=== PATIENT | female | born 1945 | race Caucasian/White ===

== ENCOUNTER 2016-10-25 15:28 | Inpatient (IN) ==
[2016-10-25] MEDS ORDERED: NS 1,000 ML IV SCH (17:07)
[2016-10-25] MEDS: DILAUDID IV PRN ×2 (17:20→22:01)
[2016-10-25] MEDS ORDERED: VENTOLIN HFA INH PRN (19:46)
[2016-10-25] MEDS: ELIQUIS PO SCH (21:59)
[2016-10-25] MEDS: PRAVACHOL PO SCH (21:59)
[2016-10-25] MEDS: NS 1,000 ML IV SCH (22:00)
--- NOTE | 2016-10-25 22:04 | HISTORY AND PHYSICAL ---
CHIEF COMPLAINT: Intractable left flank pain, localized. HISTORY OF PRESENT ILLNESS: She is a 71-year-old pleasant white female who was seen in the emergency room last night for left flank pain. ER workup with CT was negative. Sent home after pain shot. She was not able to sleep, came in with her daughter with intractable back pain and unable to sleep. She is dehydrated. Potassium is low. No skin rashes noted. X-ray of thoracic spine revealed no compression deformities noted. Basically admitted to the hospital for the pain control, IV fluids, and further evaluation. PAST MEDICAL HISTORY: Atrial fibrillation status post cardioversion with 100 joules failed, right lacunar infarct internal capsule on the left side, slight weakness, COPD, diastolic heart failure, metabolic syndrome, acid reflux disease, hypertension, nicotine dependency, B12 deficiency, anemia, left superficial femoral artery stenosis, left carotid stenosis. PAST SURGICAL HISTORY: Gastric bypass surgery, appendectomy, cholecystectomy, tubal ligation, stripping of the veins of both legs, varicose veins, right carotid endarterectomy. MEDICATIONS: Aspirin 1 tablet daily, amiodarone 200 daily, Breo 100/25 1 puff daily, digitalis 125 mcg daily, diltiazem 120 mg daily, Eliquis 5 mg p.o. b.i.d., Lasix 40 mg daily, gabapentin 600 t.i.d., potassium 20 mEq daily, Hyzaar 100/12.5 daily, Prilosec 20 daily, pravastatin 40 daily, ProAir as needed. ALLERGIES: Macrobid. SOCIAL HISTORY: with 3 children. Lives in [place]. Smoking half a pack a day for last 40 years. No alcohol. FAMILY HISTORY: Father of colon cancer at 70. Mom of old age. HEALTH MAINTENANCE: Influenza vaccine 2015, pneumococcal vaccine 2015, mammography 01/2016, DEXA scan 11/2014, colonoscopy [address] Umana. REVIEW OF SYSTEMS: HEENT: No headache. No vision problem. No earache. No sore throat. Neck: No goiter. No lymphadenopathy. No neck pain. Cardiopulmonary: No chest pain, shortness of breath, PND, orthopnea. No palpitations. GI: No nausea, vomiting, abdominal pain. : History of left flank pain. No skin rashes. Localized. No radiation. No hematuria or dysuria. Extremities: No swelling of feet. No joint pain. Neurologic: No obvious focal symptoms or weakness. PHYSICAL EXAMINATION: VITAL SIGNS: 5 feet 2 inches, 142 pounds. Afebrile, blood pressure is stable, room air 90% on oxygen. HEENT: Exam within normal limits. NECK: Supple. No lymphadenopathy. No goiter. CHEST: Bilateral air entry. HEART: Sounds are irregular. BREASTS: Deferred. ABDOMEN: Belly is soft, nontender. Good bowel sounds. Localized pain and no signs of peritonitis. No skin rashes noted. EXTREMITIES: No peripheral edema, cyanosis, clubbing. No signs of gangrene. NEUROLOGIC: No obvious focal deficits. INVESTIGATIONS: Renal CT on 10/23/2016: No renal stones or hydronephrosis, cholecystectomy, diverticulosis, prominent atherostenosis, gastric bypass. CBC: White cell count 5.4, hematocrit 41, platelet count 281,000. PT/INR is normal. D-dimer is normal. SMA 7: Sodium 140, potassium 3.2, BUN 23, creatinine 1.3, glucose 135. LFTs were normal. ProBNP 9500. ASSESSMENT AND PLAN: 1. A 71-year-old white female admitted to the hospital for observation with intractable left flank pain, etiology to be determined. X-ray of thoracic spine is negative. If no better, will consider bone scan versus MRI of thoracic spine. 2. Dehydration. Gentle hydration with 50 mL of normal saline. 3. Hypokalemia. Replace the potassium. 4. Ongoing tobacco abuse. Quit smoking. 5. Chronic obstructive pulmonary disease, stable. 6. Cerebrovascular accident on the right side with left-sided weakness, stable. 7. Paroxysmal atrial fibrillation. Continue on Cordarone and Eliquis for stroke prevention. 8. Reconcile home medications. We will follow up on the clinical course. cc: Johnny Moe MD
[2016-10-26] MEDS: POTASSIUM CHLORIDE 20 MEQ/SWI 20 MEQ/100 ML IVPB IV SCH ×2 (00:18→02:08)
[2016-10-26] MEDS: DILAUDID IV PRN ×4 (04:39→19:38)
[2016-10-26 06:35] LABS: MANUAL DIFF NEEDED? NO
[2016-10-26 06:41] LABS: BASO% 0.7 % (0.0-0.8); EOS# 0.06 X1000 (0.0-0.7); EOS% 1.4 % (0.0-10.0); HEMATOCRIT 34.9 % (37.0-47.0); LYMPH# 0.98 X1000 (1.2-3.4); LYMPH% 22.6 % (20.5-51.1); MCH 30.6 PG (27-31); MCHC 31.5 g/dL (33-37); MCV 96.9 FL (81-99); MONO% 6.9 % (1.7-9.3); MPV 11.3 FL (7.4-10.4); NEUT% 68.4 % (42.2-75.2); PLT 181 X1000 (130-400)
[2016-10-26 07:19] LABS: CALCIUM 7.6 mg/dL (8.8-10.2); POTASSIUM 3.7 mmol/L (3.5-5.1)
[2016-10-26] MEDS: PRILOSEC PO SCH (07:21)
[2016-10-26 07:55] LABS: SED RATE 18 mm/hr (0-20)
[2016-10-26] MEDS: ZOFRAN IV PRN (08:13)
[2016-10-26] MEDS: BREO ELLIPTA 100/25 MCG INH INH SCH (08:15)
[2016-10-26] MEDS ORDERED: AMBIEN PO PRN (08:33)
[2016-10-26] MEDS ORDERED: ATIVAN IV ONE (08:45)
--- NOTE | 2016-10-26 09:02 | PROGRESS NOTE ---
DATE: 10/26/2016 SUBJECTIVE: Intractable mid back pain, mostly towards the left side. Nausea, not eating well. The patient denies of any radiation. No focal symptoms or weakness. REVIEW OF SYSTEMS: None reported other than pain. PHYSICAL EXAMINATION: Vital Signs: On examination, afebrile. Blood pressure is 170/74, room air 96%. HEENT Examination: Within normal limits. Neck: Supple. Chest: Clear. Heart: Heart sounds are regular. Abdomen: Belly is soft, nontender. Good bowel sounds. No masses palpable. Integumentary: No rashes noted. Neurologic: No obvious neurological deficits. DIAGNOSTIC DATA: CBC: White cell count 4.3, hematocrit 34, platelets 181,000. Sedimentation rate was 18. SMA 7 is normal. Creatinine is 1.2. CRP 0.39. ASSESSMENT AND PLAN: 1. Intractable mid back pain towards the left side, etiology to be determined. Consider MRI of thoracic spine. 2. Impending dehydration. Intravenous fluids. 3. Insomnia. Ambien. 4. Continue present medical therapy. LEVEL OF DOCUMENTATION: 25 minutes. cc: Johnny Moe MD
--- NOTE | 2016-10-26 09:35 | Diag Imaging Result Doc PS360 ---
EXAM: MRI THORACIC SPINE W/WO CONTR HISTORY: Mid back pain TECHNIQUE: MRI of the thoracic spine with and without gadolinium; T1, T2, STIR and post gadolinium T1 fat suppressed sagittal, T1 pre and post axial and T2 axial. COMMENT: There is curvature of the thoracic spine with convexity to the left. There is no evidence of bone marrow edema. No intrathecal or intramedullary masses or signal abnormalities are present. There is no evidence of abnormal gadolinium enhancement. There is no evidence of spinal stenosis. IMPRESSION: Scoliosis. No evidence of acute disease otherwise. Electronically signed by Alexis Manriquez 10/26/2016 9:33 AM
[2016-10-26] MEDS: KLOR-CON PO SCH (09:36)
[2016-10-26] MEDS: NEURONTIN PO SCH ×3 (09:36→21:38)
[2016-10-26] MEDS: HYZAAR 100/12.5 MG TAB PO SCH (09:36)
[2016-10-26] MEDS: LASIX PO SCH (09:36)
[2016-10-26] MEDS: ASPIRIN EC PO SCH (09:36)
[2016-10-26] MEDS: ELIQUIS PO SCH ×2 (09:36→21:38)
[2016-10-26] MEDS: CARDIZEM CD PO SCH (09:38)
[2016-10-26] MEDS: CORDARONE PO SCH (09:39)
[2016-10-26] MEDS: LANOXIN PO SCH (09:39)
[2016-10-26] MEDS: NS 1,000 ML IV SCH (13:00)
[2016-10-26] MEDS: PRAVACHOL PO SCH (21:38)
[2016-10-27] MEDS: DILAUDID IV PRN ×5 (00:09→21:32)
[2016-10-27] MEDS: NS 1,000 ML IV SCH ×2 (06:57→13:13)
[2016-10-27] MEDS: PRILOSEC PO SCH (06:57)
[2016-10-27] MEDS: BREO ELLIPTA 100/25 MCG INH INH SCH (08:00)
[2016-10-27] MEDS: LANOXIN PO SCH (08:17)
[2016-10-27] MEDS: NEURONTIN PO SCH ×3 (08:17→17:11)
[2016-10-27] MEDS: CORDARONE PO SCH (08:17)
[2016-10-27] MEDS: KLOR-CON PO SCH (08:17)
[2016-10-27] MEDS: ASPIRIN EC PO SCH (08:17)
[2016-10-27] MEDS: ELIQUIS PO SCH ×2 (08:18→21:00)
[2016-10-27] MEDS: HYZAAR 100/12.5 MG TAB PO SCH (08:18)
[2016-10-27] MEDS: LASIX PO SCH (08:18)
[2016-10-27] MEDS: CARDIZEM CD PO SCH (08:18)
--- NOTE | 2016-10-27 09:03 | PROGRESS NOTE ---
DATE: 10/27/2016 SUBJECTIVE: Complains of left flank, interscapular pain. Pain is slowly easing up. REVIEW OF SYSTEMS: Otherwise none reported. PHYSICAL EXAMINATION: Vital Signs: Afebrile. Vitals are stable. HEENT: Examination within normal limits. Neck: Supple. Chest: Clear. Heart: Heart sounds are regular. Abdomen: Belly is soft and nontender. Good bowel sounds. INVESTIGATIONS: So far workup, CBC, SMA 7 are normal. An MRI of the thoracic spine is negative. ASSESSMENT AND PLAN: Left flank pain, etiology to be determined. All the workup was negative including CT renal stone search, MRI of the thoracic spine. Discussed the findings with the patient. Continue musculoskeletal pain, local treatment for pain control. We will discuss with the family about the disposition. She lives by herself. Hopefully, will be discharged home in the morning. Continue present medical therapy. Level of documentation 15 minutes. cc: Johnny Moe MD
[2016-10-27] MEDS: ZOFRAN IV PRN ×3 (12:11→21:32)
[2016-10-27] MEDS: PRAVACHOL PO SCH (21:00)
[2016-10-28] MEDS: DILAUDID IV PRN ×5 (01:37→23:33)
[2016-10-28] MEDS: ZOFRAN IV PRN ×4 (01:37→23:33)
[2016-10-28] MEDS: NS 1,000 ML IV SCH ×3 (01:43→20:04)
[2016-10-28] MEDS: PRILOSEC PO SCH (06:01)
[2016-10-28] MEDS: BREO ELLIPTA 100/25 MCG INH INH SCH (07:07)
--- NOTE | 2016-10-28 09:13 | EKG Report ---
Test Performed on : 10/28/2016 08:57:01 AM Test Reason : chest pain Blood Pressure : / mmHG Vent. Rate : 050 BPM Atrial Rate : 288 BPM P-R Int : 000 ms QRS Dur : 080 ms QT Int : 326 ms P-R-T Axes : 000 035 225 degrees QTc Int : 297 ms Atrial fibrillation. with slow ventricular response. Septal infarct (cited on or before 06-JUL-2016) ST \T\ T wave abnormality, consider lateral ischemia Abnormal ECG When compared with ECG of 06-JUL-2016 16:27, ST no longer depressed in Anterior leads Nonspecific T wave abnormality has replaced inverted T waves in Inferior leads T wave inversion less evident in Anterior leads QT has shortened Confirmed by Maicol LUA, Faisal Burnham ([id number]) on 10/30/2016 12:39:52 PM
[2016-10-28] MEDS: NEURONTIN PO SCH ×3 (09:18→16:04)
[2016-10-28] MEDS: CORDARONE PO SCH (09:18)
[2016-10-28] MEDS: LASIX PO SCH (09:18)
[2016-10-28] MEDS: ASPIRIN EC PO SCH (09:18)
[2016-10-28] MEDS: KLOR-CON PO SCH (09:18)
[2016-10-28] MEDS: HYZAAR 100/12.5 MG TAB PO SCH (09:18)
[2016-10-28] MEDS: ELIQUIS PO SCH ×2 (09:18→20:05)
[2016-10-28] MEDS: LANOXIN PO SCH (09:19)
[2016-10-28] MEDS: CARDIZEM CD PO SCH (09:20)
--- NOTE | 2016-10-28 09:28 | PROGRESS NOTE ---
DATE: 10/28/2016 SUBJECTIVE: Complains of left-sided chest pain, localized. No rashes noted. Not able to breathe. Nurses reported hall monitor and heart rate. She has dropped to 50s and 40s. Currently, asymptomatic. The pain is 5/10. Nonproductive cough. The rest of the review of systems are normal. OBJECTIVE: Vital Signs: On examination, heart rate is about 50. Afebrile. Blood pressure is 147/44. HEENT: Within normal limits. Neck: Supple. Chest: Bilateral air entry. Questionable pleurisy on the left side. Heart: Sounds are regular. Belly is soft, nontender. Good bowel sounds. No obvious neurological deficits. ASSESSMENT AND PLAN: 1. Left-sided chest wall pain and the back. Etiology to be determined. We will do a chest x-ray with left rib series. 2. Sinus bradycardia. We will do a stat EKG and digoxin levels, and hold if the heart rate is less than 60. 3. Plan of the care is hold the discharge. Continue IV fluids and symptomatic pain with hydromorphone and will follow up. LEVEL OF DOCUMENTATION: Twenty-five minutes. cc: Johnny Moe MD
--- NOTE | 2016-10-28 10:42 | Diag Imaging Result Doc PS360 ---
RIBS UNILAT W/PA CHEST LEFT - 10/28/2016 INDICATION: cp TECHNIQUE: Five views COMPARISON: 07/06/2016 FINDINGS: There is stable appearing, chronic blunting of the left lateral costophrenic angle. Heart size is borderline. Pulmonary vascularity is normal. No focal infiltrates, pneumothorax, or pleural effusion. No left-sided rib fracture. IMPRESSION: No acute disease or change from prior. Electronically signed by Shane Jon 10/28/2016 10:40 AM
[2016-10-28] MEDS: PRAVACHOL PO SCH (20:05)
[2016-10-29] MEDS: DILAUDID IV PRN ×2 (03:09→06:38)
[2016-10-29] MEDS: ZOFRAN IV PRN ×2 (03:10→06:37)
[2016-10-29 04:40] LABS: ALLEN TEST NO; BE 6.9 mmoll (-3.0-3.0); BLOOD TYPE ARTERIAL; DRAW SITE R BRACHIAL; O2(CT) 12.9 mL/dL (15.0-23.0); PCO2(98.6) 47 mmHg (35-45); PO2(98.6) 66 mmHg (60-100); SAMPLE BLOOD; SAO2 94.7 % (95.0-100.0); pH(98.6) 7.44 (7.35-7.45)
[2016-10-29 04:43] LABS: MODALITY ROOM AIR
[2016-10-29] MEDS: PRILOSEC PO SCH (06:37)
[2016-10-29] MEDS: NS 1,000 ML IV SCH (06:37)
[2016-10-29] MEDS: LANOXIN PO SCH (08:09)
[2016-10-29] MEDS: ASPIRIN EC PO SCH (08:09)
[2016-10-29] MEDS: HYZAAR 100/12.5 MG TAB PO SCH (08:09)
[2016-10-29] MEDS: CORDARONE PO SCH (08:09)
[2016-10-29] MEDS: ELIQUIS PO SCH ×2 (08:09→21:13)
[2016-10-29] MEDS: KLOR-CON PO SCH (08:09)
[2016-10-29] MEDS: NEURONTIN PO SCH ×3 (08:09→16:35)
[2016-10-29] MEDS: CARDIZEM CD PO SCH (08:09)
[2016-10-29] MEDS: LASIX PO SCH (08:09)
[2016-10-29] MEDS: BREO ELLIPTA 100/25 MCG INH INH SCH (11:23)
--- NOTE | 2016-10-29 13:47 | PROGRESS NOTE ---
DATE: 10/29/2016 SUBJECTIVE: Ms. Gutierrez still has some flank pain. Her abdomen is gig tender. She has dehydration. She says food hurts. She is anemic. Current chest x-ray and digitalis levels are normal. Arterial blood gases are unremarkable except for mild hypoxia. She is having some pain when she eats food; however, she is on Prilosec, which we will continue. -9 cc: MD Johnny Riggs MD
[2016-10-29] MEDS: PRAVACHOL PO SCH (21:13)
[2016-10-30] MEDS: PRILOSEC PO SCH (06:06)
[2016-10-30] MEDS: NS 1,000 ML IV SCH ×3 (06:06→22:49)
[2016-10-30] MEDS: BREO ELLIPTA 100/25 MCG INH INH SCH (08:04)
[2016-10-30] MEDS: LANOXIN PO SCH (08:29)
[2016-10-30] MEDS: CARDIZEM CD PO SCH (08:29)
[2016-10-30] MEDS: LASIX PO SCH (08:29)
[2016-10-30] MEDS: ELIQUIS PO SCH ×2 (08:29→20:43)
[2016-10-30] MEDS: CORDARONE PO SCH (08:29)
[2016-10-30] MEDS: HYZAAR 100/12.5 MG TAB PO SCH (08:29)
[2016-10-30] MEDS: KLOR-CON PO SCH (08:29)
[2016-10-30] MEDS: ASPIRIN EC PO SCH (08:29)
[2016-10-30] MEDS: NEURONTIN PO SCH ×3 (08:29→16:50)
--- NOTE | 2016-10-30 15:16 | PROGRESS NOTE ---
DATE: 10/30/2016 Ms. Gutierrez is doing better. She has congestive heart failure, stroke-like symptoms and some back pain. She had abdominal pain yesterday. Prilosec was added and she is doing much better today. Lungs sound much clearer. ABGs look satisfactory except for a for a slight decrease in the PO2, which is 66. Continue with the current management. cc: MD Johnny Riggs MD
[2016-10-30] MEDS ORDERED: ULTRAM PO PRN (19:59)
[2016-10-30] MEDS: PRAVACHOL PO SCH (20:43)
[2016-10-31] MEDS: PRILOSEC PO SCH ×2 (05:56→06:15)
[2016-10-31] MEDS: BREO ELLIPTA 100/25 MCG INH INH SCH (07:50)
[2016-10-31 08:00] VITALS: BP 140/59
[2016-10-31] MEDS: LASIX PO SCH (08:52)
[2016-10-31] MEDS: ASPIRIN EC PO SCH (08:52)
[2016-10-31] MEDS: CARDIZEM CD PO SCH (08:53)
[2016-10-31] MEDS: NEURONTIN PO SCH (08:53)
[2016-10-31] MEDS: LANOXIN PO SCH (08:53)
[2016-10-31] MEDS: HYZAAR 100/12.5 MG TAB PO SCH (08:53)
[2016-10-31] MEDS: CORDARONE PO SCH (08:53)
[2016-10-31] MEDS: KLOR-CON PO SCH (08:53)
[2016-10-31] MEDS: ELIQUIS PO SCH (08:53)
--- NOTE | 2016-10-31 18:29 | DISCHARGE SUMMARY ---
ADMISSION DATE: 10/25/2016 DISCHARGE DATE: 10/31/2016 DISCHARGING DIAGNOSIS: Intractable left-sided back pain due to musculoskeletal. SECONDARY DIAGNOSES: 1. Chronic atrial fibrillation. Heart rate is around 50. 2. Chronic obstructive pulmonary disease. 3. Tobacco abuse. 4. Acid reflux disease. 5. Hypertension. 6. Noncritical coronary artery disease. Last catheterization May 2015. 7. History of gastric bypass surgery. 8. Left superficial femoral artery stenosis. 9. Peripheral vascular disease. 10. History of right lacunar stroke. BRIEF HISTORY: Please see the H and P that was done on 10/25/2016. In brief, she is a 71-year- old white female was seen in the emergency room for left-sided flank pain, sent home and reevaluate my office with intractable back pain, nausea, vomiting. HOSPITAL COURSE: Patient was admitted for workup and impending dehydration. She was given IV fluids and Dilaudid. Renal stone workup was negative. Chest x-ray with left rib series. No evidence of rib injury. No evidence of skin rashes noted. She complains of some heartburn requiring IV PPI. At this time etiology nothing revealing. MRI thoracic spine is negative. LABORATORIES: CBC: White cell count 4.3, hematocrit 34, platelets 181,000. ABG, pH is 7.44, pCO2 47, PO2 66 on room air. SMA 7. Sodium 142, potassium 3.7, chloride 102, BUN 18, creatinine 1.2. CRP is normal. Digitalis level 0.5. During this hospital course heart rate did drop to 50. EKG showed atrial fibrillation and MRI of thoracic spine is negative and patient has been reassured. DISCHARGE INSTRUCTIONS: Gabapentin 600 p.o. t.i.d., Eliquis 5 mg p.o. b.i.d., Lanoxin 125 mcg daily, Breo 1 puff daily, Cardizem 120 daily, Proventil as needed, Cordarone 200 daily, Lasix 40 daily, potassium 20 mEq daily, Prilosec 20 daily, aspirin 81 mg daily, Hyzaar 100/12.5 daily, pravastatin 40 daily. Follow up in my office in 10 days. cc: Johnny Moe MD
== END 2016-10-31 09:35 | disposition home or self-care (01) ==
LOC: DIRADM 15:28 → 3N 16:22
PROVIDERS: ADMIT Internal Medicine; ATTEND Internal Medicine

== ENCOUNTER 2016-12-29 15:38 | Inpatient (IN) ==
--- NOTE | 2016-12-29 16:16 | Diag Imaging Result Doc PS360 ---
EXAM: CHEST-2 VIEWS HISTORY: POSSIBLE SEPSIS TECHNIQUE: Two views COMPARISON: 10/28/2016 FINDINGS: There are increased interstitial markings in both lung bases. The lungs are hyperexpanded. There are tiny pleural effusions. Heart is borderline mildly prominent. IMPRESSION: There are basilar infiltrates and tiny pleural effusions which have developed since the prior exam. Electronically signed by Shoaib Segura 12/29/2016 4:14 PM
--- NOTE | 2016-12-29 16:31 | Diag Imaging Result Doc PS360 ---
HEAD W/O CONTRAST - 12/29/2016 INDICATION: WEAKNESS TECHNIQUE: A CT dose reduction protocol was used. COMPARISON: 07/06/2016 FINDINGS: Stable old lacunar in the right caudate nucleus. Stable mild periventricular white matter chronic microvascular disease. No intracranial mass or hemorrhage. The skull is intact. There is an air-fluid level in the left maxillary sinus indicating maxillary sinusitis. IMPRESSION: Sinusitis. No acute intracranial disease. Electronically signed by Shane Jon 12/29/2016 4:28 PM
[2016-12-29] MEDS ORDERED: ROCEPHIN 1 GM/NS 1 GM/50 ML IVPB IV ONE (16:35)
[2016-12-29] MEDS ORDERED: ZITHROMAX 500 MG/NS 500 MG/250 ML IVPB IV ONE (16:35)
[2016-12-29] MEDS ORDERED: NS 1,000 ML IV ONE (16:39)
[2016-12-29] MEDS ORDERED: TYLENOL PO PRN (16:39)
--- NOTE | 2016-12-29 17:06 | PROVIDER DOCUMENTATION ---
This chart was entered by Abel Qureshi Scribe, acting as scribe for Kye Kaur MD. HPI-Respiratory General - General Chief Complaint: Possible Sepsis-D Stated Complaint: POSS PNEUMONIA Time Seen by Provider: 12/29/16 16:02 Source: patient Allergies/Adverse Reactions: Patient Allergies Allergy/AdvReac Type Severity Reaction Status Date / Time No Known Allergies Allergy Verified 10/23/16 22:59 Home Medications: Home Medication List Medication Instructions Recorded Confirmed Last Taken Type Gabapentin 600 mg PO TID 12/16/15 10/25/16 10/25/16 09:00 History Apixaban [Eliquis] 5 mg PO BID #60 tablet 03/02/16 10/25/16 10/25/16 09:00 Rx Digoxin [Lanoxin] 125 microgm PO DAILY #30 tablet 03/02/16 10/25/16 10/25/16 09: 00 Rx Fluticasone/Vilanterol [Breo 1 each IH DAILY #1 aer.pow.[email or web address] 03/02/16 10/25/1611/05 Rx Ellipta Inhaler] Albuterol Sulfate [Proventil Hfa] 1 puff INH Q4H PRN 07/08/16 10/25/16 Unknown History Amiodarone HCl 200 mg PO DAILY 07/08/16 10/25/16 10/25/16 09:00 History Aspirin [Low Dose Aspirin EC] 81 mg PO DAILY 07/08/16 10/25/16 10/25/16 09:00 History Diltiazem C.d. [Cardizem Cd] 120 mg PO DAILY 07/08/16 10/25/16 10/25/16 09:00 History Furosemide 40 mg PO DAILY 07/08/16 10/25/16 10/25/16 09:00 History Losartan/Hydrochlorothiazide 1 each PO DAILY 07/08/16 10/25/16 10/25/16 09:00 History [Losartan-Hctz 100-12.5 mg Tab] Omeprazole Magnesium 20 mg PO DAILY 07/08/16 10/25/16 10/25/16 09:00 History Potassium Chloride [Klor-Con M20] 20 meq PO DAILY 07/08/16 10/25/16 10/25/16 09: 00 History PRAVAstatin [Pravachol] 40 mg PO QHS 10/25/16 10/25/16 10/24/16 History - History of Present Illness-Resp Nature of Presenting Problem: patient is a 71 y/o F that presents to the Er with one week of cough/congestion , weakness, nausea, and feeling bad. No fever/chills. Feels like I'm getting worse. Quality of Pain: reports: tightness Severity in ED: reports: moderate Onset/Duration: reports: gradual, 1 week ago Timing: reports: still present, getting worse Context: denies: recent URI, out of meds Cough Quality/Degree: reports: moderate, sputum (white and green) Episode Frequency: occasional episodes Current Respiratory Medication Therapy: Initiated see nurses note Modifying Factors: worse with: exertion, coughing Associated Symptoms: reports: cough, nasal congestion, shortness of breath, short of breath, other (weakness, nausea). denies: fever/chills, flu-like symptoms, nasal drainage Similar Symptoms Previously?: No Recently seen or treated by another doctor?: No Review of Systems - Adult - REVIEW OF SYSTEMS - ADULT Constitutional: denies: chills, fever Eyes: reports: no symptoms reported Ears, Nose, Mouth & Throat: reports: sinus problem. denies: ear discharge, ear pain, throat pain, throat swelling Cardiovascular: denies: chest pain, orthopnea, palpitations, syncope Respiratory: reports: cough, dyspnea on exertion, excessive sputum production, shortness of breath. denies: wheezing Gastrointestinal: reports: nausea. denies: abdominal pain, diarrhea, vomiting Genitourinary: reports: no symptoms reported Musculoskeletal: reports: muscle weakness. denies: back pain Integumentary: reports: no symptoms reported Neurological: reports: no symptoms reported Psychiatric: reports: no symptoms reported Endocrine: reports: no symptoms reported Hematologic/Lymphatic: reports: no symptoms reported Allergic/Immunologic: reports: no symptoms reported All Other Systems: Reviewed and Negative Past History - Adult - PAST MEDICAL HISTORY-ADULT Review of Records: reports: Old Records Reviewed, Nursing Assessment Review, Medications Reviewed Cardiovascular: reports: A-Fib, CHF, HTN, hyperlipidemia Respiratory: reports: COPD Gastrointestinal: reports: GERD Endocrine/Immune: reports: Diabetes - PRIOR SURGERIES/PROCEDURES Surgical/Procedure History: reports: appendectomy, cholecystectomy, BTL, gastric bypass - IMMUNIZATION STATUS Childhood Immunizations: See Nurse Assessment Flu Vaccine: See Nurse Assessment - FAMILY HISTORY Family History: reviewed, not pertinent - SOCIAL HISTORY Smoking: cigarettes, less than 1 pack/day Living Situation: family Physical Exam-General - PHYSICAL EXAM-ADULT Initial Vital Signs Reviewed: Yes - CONSTITUTIONAL General Appearance: alert, mild distress, other (ill appearing) - EYES Eyes: PERRL/EOMI, pink conjunctivae - HEAD, EARS, NOSE, MOUTH & THROAT HENMT: normocephalic/atraumatic, moist mucous membranes, normal ENT inspection - NECK Neck: full range of motion, normal inspection - RESPIRATORY Respiratory: no respiratory distress, no accessory muscle use, rales (bilateral bases), rhonchi (bilateral) - CARDIOVASCULAR Cardiovascular: regular rate, rhythm, no edema - GASTROINTESTINAL (ABDOMEN) Abdominal Exam: normal bowel sounds, non tender, soft, no organomegaly, no pulsatile mass - MUSCULOSKELETAL Back Exam: no CVA tenderness, no vertebral tenderness Extremity: normal range of motion, normal inspection, no pedal edema - SKIN Integumentary: normal color, warm/dry - NEUROLOGIC Neurologic: supply controller II-XII nml as tested, no motor/sensory deficits - PSYCHIATRIC Psych/Mental Status: normal mood/affect, normal thought content, normal thought process, oriented x 3 Progress - PLAN OF CARE/RESULTS Progress/Plan/Lab Results: Vital Signs - 8 hr 12/29/16 15:44 Temperature 98.5 F Pulse Rate 68 Respiratory Rate 22 Blood Pressure 157/79 O2 Sat by Pulse Oximetry 95 Orders Category Date Time Status Admit - [facility] Routine AdmDCTranf 12/29/16 16:40 Ordered Activity - Bed Rest with BRP ORDERED Care 12/29/16 16:39 Active Cardiac Monitoring DIRECTED Care 12/29/16 15:48 Active IV Insertion ORDERED Care 12/29/16 15:48 Completed Notify MD of + Sepsis Screen NOW Care 12/29/16 15:48 Active Vital Signs Order ROUTINE Care 12/29/16 16:39 Active Regular Diet Diet 12/29/16 16:42 Active CHEST-2 VIEWS [RAD] Stat Exams 12/29/16 15:48 Completed HEAD W/O CONTRAST [CT] Stat Exams 12/29/16 15:54 Completed BLOOD CULTURE [BLDCUL] Stat Lab 12/29/16 16:45 Ordered CBC WITH DIFF [HEME] Stat Lab 12/29/16 16:45 Ordered CK PROFILE [SP CHEM] Stat Lab 12/29/16 16:45 Ordered COMPREHENSIVE METABOLIC PANEL [CHEM] Stat Lab 12/29/16 16:45 Ordered LACTATE, PLASMA [CHEM] Stat Lab 12/29/16 16:45 Ordered PROTIME WITH INR [COAG] Stat Lab 12/29/16 16:57 Ordered PTT [COAG] Stat Lab 12/29/16 16:45 Ordered TROPONIN T Stat Lab 12/29/16 16:45 Ordered 0.9% Sodium Chloride Inj [Ns] 1,000 ml Med 12/29/16 16:39 Active IV 125 mls/hr Acetaminophen [Tylenol] Med 12/29/16 16:39 Active 650 mg PO Q6H PRN PRN Albuterol 2.5MG/Ipratrop 0.5MG [Duoneb (A & A)] Med 12/29/16 19:30 Active 3 ml INH RTQ4H Azithromycin 500 mg/Ns [Zithromax 500 mg/Ns] Med 12/29/16 16:35 Active 500 mg in 250 ml IV NOW CefTRIAXONE 1 GM/NS [Rocephin 1 gm/Ns] Med 12/29/16 16:35 Discontinued 1 gm in 50 ml IV NOW Hydromorphone [Dilaudid] Med 12/29/16 16:39 Active 2 mg IM Q4H PRN PRN Ondansetron [Zofran] Med 12/29/16 16:39 Active 4 mg IV Q4H PRN PRN Aerosol Treatments Routine Oth 12/29/16 16:43 Active Aerosol Treatments Stat Oth 12/29/16 16:43 Active Oxygen Device Stat Oth 12/29/16 15:48 Active Transfer/Admit Order [TRANSFER] Routine Transfer 12/29/16 16:39 Ordered - XRAY 1 XRAY Study: Chest Impression: Abnormal XRAY Interpretation: basilar infiltrates, tiny pleural effusion - CT/MRI 1 CT Study: Head Impression: Abnormal CT Results: sinusitis, no acute injury - CONSULTS/PCP/HOSPITALIST Notification #1 *Consult/PCP/Hospitalist*: Time Discussed: 16:38 Reason/Comments: pneumonia Consult Disposition: Will see in ED, Admit Departure - Departure Date of Disposition Decision: 12/29/16 Time of Disposition Decision: 16:38 DIAGNOSIS: Pneumonia, COPD exacerbation, Sinusitis nasal, Weakness, Pleural effusion Disposition: ADMITTED INPATIENT 09 Certified Medical Emergency: Emergent Condition: Stable Referrals and Follow-Ups: Dary Moe MD [Primary Care Provider] - - Critical Care Note This patient required my direct & personal management of CC.: No Attestation - Physician/ JIM Attestation The physician spent face to face time with patient:: Yes Advanced Practice Provider documentation review:: Supervising physician onsite and consulted in the evaluation and care of this patient. The physician did have a face to face encounter with the patient. This chart was documented by the indicated scribe, (Abel Qureshi, Scribe) and accurately reflects the services I performed and decisions made by me, Kye Kaur MD, as attested by the provider's signature.
[2016-12-29 17:07] LABS: MANUAL DIFF NEEDED? NO
[2016-12-29 17:12] LABS: BASO% 0.3 % (0.0-0.8); HEMOGLOBIN 12.4 g/dL (12.0-16.0); IMM GRAN# 0.03 X1000 (0.0-0.04); IMM GRAN% 0.5 % (0.0-0.5); LYMPH% 12.4 % (20.5-51.1); MCH 30.1 PG (27-31); MCHC 31.8 g/dL (33-37); MCV 94.7 FL (81-99); MONO# 0.34 X1000 (0.11-0.59); MONO% 5.3 % (1.7-9.3); MPV 11.5 FL (7.4-10.4); NEUT% 81.5 % (42.2-75.2); PLT 232 X1000 (130-400); RBC 4.12 XMIL (4.2-5.4)
[2016-12-29 17:20] LABS: INR 0.97; PROTIME 10.2 Seconds (9.2-11.7)
[2016-12-29 17:36] LABS: AGAP 2; ALKALINE PHOSPHATASE 164 U/L (32-104); BUN 20 mg/dL (8-22); CHLORIDE 96 mmol/L (98-107); CK PROFILE 63 U/L (24-173); COSMO 280; GOT 18 U/L (10-30); GPT 22 U/L (10-36); POTASSIUM 3.1 mmol/L (3.5-5.1); SODIUM 139 mmol/L (136-145); TCO2 41 mmol/L (25-35); TOTAL BILIRUBIN 1.35 mg/dL (0.20-1.00); TOTAL PROTEIN 6.5 g/dL (6.3-8.3)
[2016-12-29] MEDS: DUONEB (A & A) INH SCH ×2 (18:36→23:00)
[2016-12-29] MEDS ORDERED: LASIX IV ONE (18:42)
[2016-12-29] MEDS ORDERED: SODIUM CHLORIDE 0.9% INJ SCH (18:45)
[2016-12-29] MEDS: POTASSIUM CHLORIDE 20 MEQ/SWI 20 MEQ/100 ML IVPB IV SCH ×2 (20:08→22:00)
[2016-12-29] MEDS: LASIX IV SCH (20:09)
[2016-12-29] MEDS: PRAVACHOL PO SCH (20:09)
[2016-12-29] MEDS: PROTONIX IV SCH (20:10)
[2016-12-29] MEDS: DILAUDID IM PRN (20:11)
--- NOTE | 2016-12-29 21:12 | HISTORY AND PHYSICAL ---
CHIEF COMPLAINT: Shortness of breath, cough, wheezing for the last 3 days. HISTORY OF PRESENT ILLNESS: She is a 71-year-old white female with a known history of chronic congestive heart failure, atrial fibrillation, basically came in with the above symptoms. The patient was seen by Dr. Sommers. Chest x-ray showed cardiomegaly with CHF. She also has superimposed bronchitis with underlying COPD. Admitted to telemetry for decompensated heart failure with systolic dysfunction along with bronchitis. As a result, a hospital admission was warranted. PAST MEDICAL HISTORY: Atrial fibrillation status post cardioversion. 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 COPD. Diastolic heart failure. Metabolic syndrome. Acid reflux disease. Hypertension. Nicotine dependency. B12 deficiency. Left superficial femoral artery stenosis. Left carotid stenosis. PAST SURGICAL HISTORY: Gastric bypass surgery. Appendectomy. Cholecystectomy. Tubal ligation. Stripping of the veins in both legs for varicose veins. Right carotid endarterectomy. MEDICATIONS: Gabapentin 600 t.i.d., Lanoxin 125 mcg daily, Breo 1 puff daily, Cardizem CD 120 daily, Proventil as needed, Cordarone 200 daily, Lasix 40 daily, potassium 20 mEq daily, Prilosec 20 mg daily, aspirin 80 mg daily, Hyzaar 100/12.5 daily, pravastatin 40 mg daily, Plavix 75 daily, Eliquis 5 mg daily. ALLERGIES: Macrobid. SOCIAL HISTORY: . 3 children. Lives in [place]. Smoking for last 40 years. No alcohol. FAMILY HISTORY: Father of colon cancer at 70. Mom of old age. HEALTH MAINTENANCE: Influenza vaccine 2015, pneumococcal vaccine 2015, mammography 01/2016. DEXA scan 11/2014. Colonoscopy 2007. REVIEW OF SYSTEMS: HEENT: No headache. No vision problem. No earache. No sore throat. Neck: No goiter. No lymphadenopathy. No bruit. Cardiopulmonary: Coughing, shortness of breath, PND, orthopnea. No chest pain. GI: No nausea, vomiting, abdominal pain. : No history of hesitancy, frequency, dysuria, hematuria. Extremities: No swelling of feet. Neurological: No neurologic symptoms like weakness. PHYSICAL EXAMINATION: VITAL SIGNS: She is afebrile. Vitals are stable. 5 feet 2 inches, 148 pounds. HEENT: Within normal limits. NECK: Supple. No lymphadenopathy. On Ventimask with nebulizer treatment while examining the patient. CHEST: Bilateral wheezing, crackles in the right base. HEART: Sounds are very distant. BREASTS: Deferred. ABDOMEN: Belly is soft, nontender. Good bowel sounds. EXTREMITIES: No peripheral edema. NEUROLOGIC: No obvious neurological deficits. INVESTIGATIONS: CBC, white cell count 6.4, hematocrit 39, platelet count 232,000. PT/INR is normal. SMA7: Sodium 139, potassium 3.1, chloride 96, BUN 20, creatinine 0.8, glucose 102, calcium 8. LFTs were normal. Blood cultures are pending. Chest x-ray: CHF, cardiomegaly. ASSESSMENT AND PLAN: 1. A 71-year-old white female admitted to the hospital with shortness of breath, cough, wheezing, with underlying COPD and diastolic dysfunction with underlying atrial fibrillation, basically admitted with decompensated diastolic heart failure. Plan is oxygen, bronchodilators, IV steroids, IV antibiotics and she was given a dose of ceftriaxone and Zithromax and followed by IV Levaquin. 2. Decompensated diastolic heart failure. Continue on IV Lasix. 3. Hypokalemia, replace the potassium. 4. Paroxysmal atrial fibrillation, on Cordarone and Eliquis. 5. Peripheral artery disease, on aspirin, Plavix. 6. B12 deficiency, on replacement therapy. 7. Reconcile home medications. We will follow up on the labs in the morning. 8. Chronic tobacco abuse. Nicotine cessation program. cc: Johnny Moe MD
[2016-12-29] MEDS: LEVAQUIN 500 MG/D5W 500 MG/100 ML IVPB IV SCH (22:00)
[2016-12-30] MEDS: DILAUDID IM PRN ×3 (03:43→22:31)
[2016-12-30] MEDS: ZOFRAN IV PRN ×2 (03:43→09:19)
[2016-12-30] MEDS: DUONEB (A & A) INH SCH ×6 (04:00→23:01)
[2016-12-30 04:23] LABS: ALLEN TEST YES; BE 8.8 mmoll (-3.0-3.0); BLOOD TYPE ARTERIAL; DRAW SITE R RADIAL; METHB 1.3 % (0.0-1.5); MODALITY CANNULA; O2(CT) 12.8 mL/dL (15.0-23.0); PCO2(98.6) 46 mmHg (35-45); PO2(98.6) 75 mmHg (60-100); SAMPLE BLOOD; SAO2 97.4 % (95.0-100.0); THB 9.7 g/dL (11.5-17.4); pH(98.6) 7.47 (7.35-7.45)
[2016-12-30 06:55] LABS: BASO% 0.1 % (0.0-0.8); HEMATOCRIT 32.1 % (37.0-47.0); HEMOGLOBIN 10.1 g/dL (12.0-16.0); IMM GRAN# 0.02 X1000 (0.0-0.04); IMM GRAN% 0.2 % (0.0-0.5); LYMPH# 0.43 X1000 (1.2-3.4); LYMPH% 5.3 % (20.5-51.1); MANUAL DIFF NEEDED? YES; MCH 29.9 PG (27-31); MCHC 31.5 g/dL (33-37); MONO# 0.38 X1000 (0.11-0.59); MONO% 4.7 % (1.7-9.3); MPV 11.4 FL (7.4-10.4); NEUT% 89.7 % (42.2-75.2); PLT 191 X1000 (130-400); RBC 3.38 XMIL (4.2-5.4)
--- NOTE | 2016-12-30 07:00 | EKG Report ---
Test Performed on : 12/30/2016 06:14:20 AM Test Reason : cp Blood Pressure : / mmHG Vent. Rate : 067 BPM Atrial Rate : 258 BPM P-R Int : 000 ms QRS Dur : 076 ms QT Int : 380 ms P-R-T Axes : 000 034 235 degrees QTc Int : 401 ms Afib with rate controlled reposnse (vs. SNR with ? serial prolonged CA (see far lateral leads V5-V6) - longer rhythm strip with increased gain may be of benefit) Possible Anterior infarct (cited on or before 06-JUL-2016) ST \T\ T wave abnormality, consider inferolateral ischemia Abnormal ECG When compared with ECG of 28-OCT-2016 08:57, ST now depressed in Anterior leads QT has lengthened Confirmed by Titus Sherwood DO ([id number]) on 01/01/2017 10:28:21 AM
[2016-12-30 07:12] LABS: AGAP 13; BUN 20 mg/dL (8-22); CALCIUM 7.5 mg/dL (8.8-10.2); CHLORIDE 100 mmol/L (98-107); COSMO 290; MAGNESIUM 1.6 mg/dL (1.5-2.7); POTASSIUM 3.4 mmol/L (3.5-5.1); SODIUM 143 mmol/L (136-145); TCO2 30 mmol/L (25-35)
--- NOTE | 2016-12-30 08:09 | Diag Imaging Result Doc PS360 ---
CHEST-2 VIEWS - 12/30/2016 INDICATION: hypoxia TECHNIQUE: COMPARISON: 12/29/2016 FINDINGS: Lung volumes are improved. Stable cardiomegaly and mild pulmonary vascular congestion. Stable ill-defined interstitial infiltrates in the lung bases right greater than left. Stable trace pleural effusions. No pneumothorax. IMPRESSION: Nonspecific findings. No change from prior. Likely represents residual pulmonary edema. Electronically signed by Shane Jon 12/30/2016 8:06 AM
[2016-12-30] MEDS ORDERED: NICODERM PATCH TD ONE (09:11)
[2016-12-30 09:12] LABS: BANDS 2 % (0-1); LARGE PLATELETS 1+; LYMPHS 8 % (21-51); MONO 5 % (1-9)
[2016-12-30] MEDS: LASIX IV SCH ×2 (09:19→22:30)
[2016-12-30] MEDS: SOLU-MEDROL IV SCH (09:19)
[2016-12-30] MEDS: CORDARONE PO SCH (09:20)
[2016-12-30] MEDS: ELIQUIS PO SCH (09:20)
[2016-12-30] MEDS: NEURONTIN PO SCH ×3 (09:20→18:37)
[2016-12-30] MEDS: KLOR-CON PO SCH (09:20)
[2016-12-30] MEDS: PLAVIX PO SCH (09:20)
[2016-12-30] MEDS: CARDIZEM CD PO SCH (09:20)
[2016-12-30] MEDS: ASPIRIN EC PO SCH (09:21)
[2016-12-30] MEDS: CYANOCOBALAMIN IM SCH (09:21)
[2016-12-30] MEDS: HYZAAR 100/12.5 MG TAB PO SCH (09:21)
[2016-12-30] MEDS: LANOXIN PO SCH (09:22)
[2016-12-30 10:35] LABS: URINE SOURCE CATH
[2016-12-30 10:39] LABS: BILIRUBIN URINE NEGATIVE (NEGATIVE); BLOOD URINE TRACE (NEGATIVE); COLOR YELLOW; GLUCOSE URINE NEGATIVE (NEGATIVE); LEUKOCYTES URINE NEGATIVE (NEGATIVE); NITRITE URINE NEGATIVE (NEGATIVE); PROTEIN URINE TRACE mg/dL (NEGATIVE); TURBIDITY URINE CLEAR (CLEAR); UROBILINOGEN URINE NORMAL (NORMAL)
[2016-12-30 10:40] LABS: URINE MICRO REVIEW NEEDED? YES
[2016-12-30 10:41] LABS: UR EPITHELIAL CELLS <10 /HPF (<10); URINE BACTERIA NEGATIVE /HPF; URINE CULTURE NEEDED? YES; URINE RBC <10 /HPF (<10); URINE WBC TNTC /HPF (<10)
[2016-12-30] MEDS: LEVAQUIN 500 MG/D5W 500 MG/100 ML IVPB IV SCH (22:29)
[2016-12-30] MEDS: PRAVACHOL PO SCH (22:30)
[2016-12-30] MEDS: PROTONIX IV SCH (22:31)
[2016-12-30] MEDS ORDERED: AMBIEN PO ONE (22:47)
[2016-12-30] MEDS ORDERED: AMBIEN PO PRN (22:47)
[2016-12-31] MEDS: DUONEB (A & A) INH SCH ×6 (03:49→22:55)
[2016-12-31] MEDS: DILAUDID IM PRN ×2 (04:00→22:22)
[2016-12-31] MEDS: BREO ELLIPTA 100/25 MCG INH INH SCH (08:00)
[2016-12-31] MEDS: LASIX IV SCH ×2 (10:10→22:22)
[2016-12-31] MEDS: PLAVIX PO SCH (10:14)
[2016-12-31] MEDS: ELIQUIS PO SCH (10:14)
[2016-12-31] MEDS: ASPIRIN EC PO SCH (10:14)
[2016-12-31] MEDS: LANOXIN PO SCH (10:15)
[2016-12-31] MEDS: KLOR-CON PO SCH (10:15)
[2016-12-31] MEDS: NEURONTIN PO SCH ×3 (10:15→18:20)
[2016-12-31] MEDS: CARDIZEM CD PO SCH (10:16)
[2016-12-31] MEDS: SOLU-MEDROL IV SCH (10:16)
[2016-12-31] MEDS: CYANOCOBALAMIN IM SCH (10:16)
[2016-12-31] MEDS: NICODERM PATCH TD SCH (10:19)
[2016-12-31] MEDS: HYZAAR 100/12.5 MG TAB PO SCH (10:20)
[2016-12-31] MEDS: CORDARONE PO SCH (10:21)
[2016-12-31] MEDS ORDERED: KLOR-CON PO ONE ×2 (12:16→17:07)
[2016-12-31] MEDS: POTASSIUM CHLORIDE 20 MEQ/SWI 20 MEQ/100 ML IVPB IV SCH ×2 (15:04→17:24)
--- NOTE | 2016-12-31 17:40 | PROGRESS NOTE ---
DATE: 12/31/2016 SUBJECT: Patient complains of leg cramps, decreased shortness of breath, cough and wheezing. Patient had significant diuresis. Clinical exam is compatible with heart failure with diastolic dysfunction. REVIEW OF SYSTEMS: No chest pain. No shortness of breath. No swelling of feet. PHYSICAL EXAMINATION: Vital signs: Afebrile 98.7, blood pressure is 120/48, 3 L nasal cannula 98%, I's and O's negative so far 4 L. HEENT: Within normal limits. Chest: Decreased crackles, wheezing. Heart: Sounds are very distant. Belly: Is soft, nontender. Good bowel sounds. Extremities: No peripheral edema, cyanosis. Neuro: No obvious neurological deficits. INVESTIGATIONS: ProBNP 9000, cardiac enzymes were normal, potassium 3.4. ASSESSMENT AND PLAN: 1. Shortness of breath with underlying chronic obstructive pulmonary disease and diastolic heart failure with atrial fibrillation. Excellent diuresis. Chest x-ray is improving. 2. Leg cramps due to low potassium, continue on potassium replacement. 3. Chronic obstructive pulmonary disease on nebulizers and IV Levaquin and IV steroids. 4. Chronic insomnia, Ambien as needed. 5. Chronic neuropathy pain on Neurontin. 6. Paroxysmal atrial fibrillation rate control, continue on Cordarone and Eliquis. Increase activity next 24 hours. LEVEL OF DOCUMENTATION: 25 minutes. cc: Johnny Moe MD
[2016-12-31] MEDS: PROTONIX IV SCH (18:20)
[2016-12-31] MEDS: PRAVACHOL PO SCH (22:22)
[2016-12-31] MEDS: LEVAQUIN 500 MG/D5W 500 MG/100 ML IVPB IV SCH (22:22)
[2017-01-01] MEDS: DILAUDID IM PRN ×2 (01:12→23:19)
[2017-01-01] MEDS: DUONEB (A & A) INH SCH ×5 (03:53→20:17)
[2017-01-01] MEDS: ASPIRIN EC PO SCH (08:27)
[2017-01-01] MEDS: LANOXIN PO SCH (08:27)
[2017-01-01] MEDS: PLAVIX PO SCH (08:27)
[2017-01-01] MEDS: NEURONTIN PO SCH ×3 (08:27→19:32)
[2017-01-01] MEDS: ELIQUIS PO SCH (08:28)
[2017-01-01] MEDS: HYZAAR 100/12.5 MG TAB PO SCH (08:28)
[2017-01-01] MEDS: CARDIZEM CD PO SCH (08:28)
[2017-01-01] MEDS: CORDARONE PO SCH (08:28)
[2017-01-01] MEDS: SOLU-MEDROL IV SCH (08:29)
[2017-01-01] MEDS: CYANOCOBALAMIN IM SCH (08:29)
[2017-01-01] MEDS: NICODERM PATCH TD SCH (08:29)
[2017-01-01] MEDS: LASIX IV SCH (08:29)
[2017-01-01] MEDS: KLOR-CON PO SCH (08:33)
[2017-01-01] MEDS ORDERED: MIRALAX PO ONE (11:47)
--- NOTE | 2017-01-01 13:24 | PROGRESS NOTE ---
DATE: 01/01/2017 SUBJECTIVE: Patient is improved decreased work of breathing and leg cramps are improved. Complains of constipation. REVIEW OF SYSTEMS: Otherwise normal. OBJECTIVE: Vital Signs: Afebrile. Vitals are stable. On 3 L nasal cannula 98%. I's and O's negative 3.3, total was negative about 6 L. HEENT: Within normal limits. Chest: Clear. No crackles. Heart: Irregular heart sounds. Abdomen: Belly is soft, nontender. Good bowel sounds. Extremities: No peripheral edema, cyanosis. Neurologic: No obvious neurological deficits. LABORATORY STUDIES: SMA 7: Potassium 3.4. Urine cultures show yeast infection. ASSESSMENT: 1. Congestive heart failure, diastolic heart failure atrial fibrillation improved after diuresis. We will decrease the Lasix once a day. 2. Constipation. MiraLAX and laxatives as directed. 3. Yeast infection in the urine. Diflucan for 5 days. 4. Chronic obstructive pulmonary disease. Continue on IV antibiotics with Levaquin. Decrease IV steroids. PLAN OF CARE: Repeat the laboratory workup in the morning. Out of the bed. LEVEL OF DOCUMENTATION: 25 minutes. cc: Johnny Moe MD
[2017-01-01] MEDS: BREO ELLIPTA 100/25 MCG INH INH SCH ×2 (17:33→20:17)
[2017-01-01] MEDS: PROTONIX IV SCH (19:50)
[2017-01-01] MEDS ORDERED: ATIVAN IV PRN (20:21)
[2017-01-01] MEDS: PRAVACHOL PO SCH (23:19)
[2017-01-01] MEDS: LEVAQUIN 500 MG/D5W 500 MG/100 ML IVPB IV SCH (23:19)
[2017-01-02] MEDS: DUONEB (A & A) INH SCH ×6 (06:31→23:25)
[2017-01-02 07:37] LABS: CALCIUM 7.9 mg/dL (8.8-10.2); POTASSIUM 4.2 mmol/L (3.5-5.1)
[2017-01-02 07:38] LABS: BASO% 0.1 % (0.0-0.8); HEMATOCRIT 35.1 % (37.0-47.0); HEMOGLOBIN 11.1 g/dL (12.0-16.0); IMM GRAN# 0.13 X1000 (0.0-0.04); IMM GRAN% 1.2 % (0.0-0.5); LYMPH# 0.54 X1000 (1.2-3.4); MANUAL DIFF NEEDED? YES; MCH 29.5 PG (27-31); MCHC 31.6 g/dL (33-37); MCV 93.4 FL (81-99); MONO# 0.46 X1000 (0.11-0.59); MONO% 4.3 % (1.7-9.3); MPV 11.1 FL (7.4-10.4); NEUT% 89.4 % (42.2-75.2); PLT 268 X1000 (130-400); RBC 3.76 XMIL (4.2-5.4)
[2017-01-02 08:02] LABS: LYMPHS 4 % (21-51); MONO 8 % (1-9)
[2017-01-02 08:03] LABS: HYPOCHROM 1+
--- NOTE | 2017-01-02 08:07 | Diag Imaging Result Doc PS360 ---
EXAM: CHEST, TWO VIEWS HISTORY: Hypoxia TECHNIQUE: Sitting upright AP and lateral COMPARISON: 12/30/2016 FINDINGS: There are increased interstitial markings in the lower lungs. These are less pronounced than on the prior study. The heart is not enlarged. The vessels are not distended. No pleural effusions. No consolidation. IMPRESSION: Interval improvement with decreased interstitial markings in the lung bases Electronically signed by Shoaib Segura 01/02/2017 8:05 AM
--- NOTE | 2017-01-02 09:05 | PROGRESS NOTE ---
DATE: 01/02/2017 SUBJECTIVE: The patient complains of leg cramps, not able to walk. Family was there. Just returned from chest x-ray. REVIEW OF SYSTEMS: Weak and feeble. Not able to do her activities at home. PHYSICAL EXAMINATION: Vital Signs: Afebrile. Vitals are stable. Input and output negative 1700 mL. Chest: Bilateral air entry. Decreased rales. Heart: Heart sounds are irregular. Abdomen: Belly is soft, nontender. Good bowel sounds. Extremities: No peripheral edema, cyanosis. Neurologic: No obvious neurological deficits. INVESTIGATIONS: CBC: White cell count 10, hematocrit 35, platelet count 268,000. SMA-7: Sodium 138, potassium 4.2, BUN 28, creatinine 1.2. Urine positive for yeast infection. ASSESSMENT AND PLAN: 1. Diastolic heart failure with underlying atrial fibrillation, stable. Cut down the Lasix once daily. Chest x-ray is improving. 2. Atrial fibrillation, chronic, rate control and anticoagulation. 3. Leg pains due to hypokalemia is better. 4. Constipation. MiraLAX was given. 5. Urinary tract infection with yeast infection, on Diflucan. PLAN OF CARE: Discontinue Watts. Out of the bed with inpatient physical therapy. Family wants to send her for rehab for 21 days. account services representative consult. LEVEL OF DOCUMENTATION: 25 minutes. cc: Johnny Moe MD
[2017-01-02] MEDS: ZOFRAN IV PRN (10:00)
[2017-01-02] MEDS: MIRALAX PO SCH (10:00)
[2017-01-02] MEDS: LASIX IV SCH (10:40)
[2017-01-02] MEDS: SOLU-MEDROL IV SCH (10:40)
[2017-01-02] MEDS: NICODERM PATCH TD SCH (13:19)
[2017-01-02] MEDS: NEURONTIN PO SCH ×3 (13:21→17:22)
[2017-01-02] MEDS: CARDIZEM CD PO SCH (13:21)
[2017-01-02] MEDS: KLOR-CON PO SCH (13:21)
[2017-01-02] MEDS: HYZAAR 100/12.5 MG TAB PO SCH (13:21)
[2017-01-02] MEDS: PLAVIX PO SCH (13:21)
[2017-01-02] MEDS: DIFLUCAN PO SCH (13:22)
[2017-01-02] MEDS: ASPIRIN EC PO SCH (13:22)
[2017-01-02] MEDS: LANOXIN PO SCH (13:22)
[2017-01-02] MEDS: CYANOCOBALAMIN IM SCH (13:22)
[2017-01-02] MEDS: ELIQUIS PO SCH (13:22)
[2017-01-02] MEDS: CORDARONE PO SCH (13:22)
[2017-01-02] MEDS ORDERED: BLISTEX MEDICATED BERRY LIP BALM TOP PRN (16:44)
[2017-01-02] MEDS: PROTONIX IV SCH ×2 (17:22→17:49)
[2017-01-02] MEDS: BREO ELLIPTA 100/25 MCG INH INH SCH (19:58)
[2017-01-02] MEDS: DILAUDID IM PRN (20:36)
[2017-01-02] MEDS: LEVAQUIN 500 MG/D5W 500 MG/100 ML IVPB IV SCH (20:37)
[2017-01-02] MEDS: PRAVACHOL PO SCH (20:37)
[2017-01-03] MEDS: DUONEB (A & A) INH SCH ×5 (03:16→22:58)
[2017-01-03] MEDS: DILAUDID IM PRN (04:45)
[2017-01-03] MEDS ORDERED: CITRATE OF MAGNESIA PO ONE (08:15)
[2017-01-03] MEDS ORDERED: ZOVIRAX CREAM TOP SCH (09:00)
--- NOTE | 2017-01-03 09:02 | PROGRESS NOTE ---
DATE: 01/03/2017 SUBJECTIVE: The patient is slowly improving. Decrease in leg cramps. Complains of constipation. Not able to urinate. Straight catheterization was done last night. REVIEW OF SYSTEMS: Rest of the review of systems are normal. PHYSICAL EXAMINATION: Vital Signs: She is afebrile. Vitals are stable. HEENT Examination: Had cold sores over the philtrum. Chest: Bilateral air entry. Heart: Regular heart sounds, distant. Abdomen: Belly is soft, nontender. Extremities: No peripheral edema. INVESTIGATIONS: None reported. ASSESSMENT AND PLAN: 1. Diastolic heart failure, atrial fibrillation, stable. 2. Urine has yeast infection, on Diflucan. 3. Cold sores over the philtrum. We will use Denavir cream. 4. Chronic obstructive pulmonary disease exacerbation, on intravenous steroids and Levaquin. 5. The patient complains of constipation. We will give her magnesium citrate. 6. Level of documentation is 25 minutes. Hopefully will be discharged to the rehab once she is medically stable. Out of the bed with physical therapy today. cc: Johnny Moe MD
[2017-01-03] MEDS: ZOFRAN IV PRN ×2 (09:10→18:46)
[2017-01-03] MEDS: SOLU-MEDROL IV SCH (09:15)
[2017-01-03] MEDS: LASIX IV SCH (09:15)
[2017-01-03] MEDS: CYANOCOBALAMIN IM SCH (09:16)
[2017-01-03] MEDS: ZOVIRAX OINTMENT TOP SCH ×3 (12:08→18:31)
[2017-01-03] MEDS ORDERED: FLEET MINERAL OIL ENEMA PR ONE (14:22)
[2017-01-03] MEDS: LANOXIN PO SCH (15:43)
[2017-01-03] MEDS: ELIQUIS PO SCH (15:43)
[2017-01-03] MEDS: CARDIZEM CD PO SCH (15:43)
[2017-01-03] MEDS: ASPIRIN EC PO SCH (15:43)
[2017-01-03] MEDS: PLAVIX PO SCH (15:43)
[2017-01-03] MEDS: CORDARONE PO SCH (15:43)
[2017-01-03] MEDS: NEURONTIN PO SCH ×3 (15:43→18:31)
[2017-01-03] MEDS: DIFLUCAN PO SCH (15:43)
[2017-01-03] MEDS: HYZAAR 100/12.5 MG TAB PO SCH (15:44)
[2017-01-03] MEDS: MIRALAX PO SCH (15:44)
[2017-01-03] MEDS: NICODERM PATCH TD SCH (15:46)
[2017-01-03] MEDS: KLOR-CON PO SCH (15:46)
[2017-01-03] MEDS: PROTONIX IV SCH (18:46)
[2017-01-03] MEDS: BREO ELLIPTA 100/25 MCG INH INH SCH (19:35)
[2017-01-03] MEDS: LEVAQUIN 500 MG/D5W 500 MG/100 ML IVPB IV SCH (20:55)
[2017-01-03] MEDS: PRAVACHOL PO SCH (20:55)
[2017-01-04] MEDS: ZOFRAN IV PRN ×2 (03:00→06:28)
[2017-01-04] MEDS: DUONEB (A & A) INH SCH ×6 (03:22→23:22)
[2017-01-04] MEDS: PROTONIX IV SCH ×2 (06:13→21:54)
[2017-01-04] MEDS ORDERED: PHENERGAN IV PRN (08:14)
[2017-01-04] MEDS ORDERED: SODIUM CHLORIDE 0.9% INJ PRN (08:14)
[2017-01-04] MEDS: DILAUDID IM PRN ×3 (08:15→18:37)
[2017-01-04] MEDS: LASIX IV SCH (08:30)
[2017-01-04] MEDS: NICODERM PATCH TD SCH (08:30)
[2017-01-04] MEDS: SOLU-MEDROL IV SCH (08:30)
[2017-01-04 09:12] LABS: URINE CULTURE NEEDED? NO; URINE MICRO REVIEW NEEDED? NO; URINE SOURCE CATH
[2017-01-04 09:19] LABS: BILIRUBIN URINE NEGATIVE (NEGATIVE); BLOOD URINE NEGATIVE (NEGATIVE); COLOR YELLOW; GLUCOSE URINE NEGATIVE (NEGATIVE); LEUKOCYTES URINE NEGATIVE (NEGATIVE); NITRITE URINE NEGATIVE (NEGATIVE); PROTEIN URINE TRACE mg/dL (NEGATIVE); SP GRAVITY URINE 1.018; TURBIDITY URINE CLEAR (CLEAR); UR EPITHELIAL CELLS <10 /HPF (<10); URINE BACTERIA NEGATIVE /HPF; URINE RBC <10 /HPF (<10); URINE WBC <10 /HPF (<10); UROBILINOGEN URINE NORMAL (NORMAL)
--- NOTE | 2017-01-04 11:01 | Diag Imaging Result Doc PS360 ---
EXAM: ABDOMEN FLAT/UPRIGHT INDICATION: pain TECHNIQUE: 2 views COMPARISON: 03/12/2013 FINDINGS: There are a few mildly gas distended loops of small bowel in the midabdomen that are nonspecific. Partial small bowel obstruction versus ileus should be considered. There is no evidence of large volume free abdominal gas. Cholecystectomy clips are noted. IMPRESSION: Nonspecific mildly gas distended loops of small bowel as described. Electronically signed by Armani Martínez 01/04/2017 10:58 AM
[2017-01-04] MEDS: ASPIRIN EC PO SCH (11:10)
[2017-01-04] MEDS: PLAVIX PO SCH (11:11)
[2017-01-04] MEDS: NEURONTIN PO SCH ×2 (11:12→15:38)
[2017-01-04] MEDS: MIRALAX PO SCH (11:12)
[2017-01-04] MEDS: LANOXIN PO SCH (11:12)
[2017-01-04] MEDS: DIFLUCAN PO SCH (11:13)
[2017-01-04] MEDS: CORDARONE PO SCH (11:13)
[2017-01-04] MEDS: KLOR-CON PO SCH (11:13)
[2017-01-04] MEDS: ELIQUIS PO SCH (11:13)
[2017-01-04] MEDS: HYZAAR 100/12.5 MG TAB PO SCH (11:13)
[2017-01-04] MEDS: CARDIZEM CD PO SCH (11:14)
--- NOTE | 2017-01-04 16:19 | Diag Imaging Result Doc PS360 ---
EXAM: CT ABDOMEN/PELVIS W/WO CONTRAS HISTORY: Obstruction vs ileus TECHNIQUE: CT of the abdomen and pelvis with oral and without and with intravenous contrast COMMENT: There are coarse opacities in both lower lobes with denser consolidation in the posterior lateral right lower lobe. These findings were not present on the previous study of 10/23/2016. This may represent pneumonia. There are atherosclerotic calcifications throughout the aorta. There is fairly dense calcification near the ostia of the renal arteries. There is slight dilatation of the infrarenal abdominal aorta to a maximum dimension of 2.1 cm . The mesenteric arteries are patent. There is an NG tube with its tip in the stomach or proximal jejunum. There has been gastric bypass. The adrenal glands are somewhat enlarged suggesting hyperplasia. The tail of the pancreas is atrophic. There is some dilatation of the common bile duct without definite evidence of stones or a nonobstructing lesion. There is been cholecystectomy. There is dilatation of the small bowel with the exception of the terminal ileum. Some fecal content is present in a dilated small bowel loop in the pelvis around image 92. Pelvis: There is diverticulosis in the descending and sigmoid colon without evidence of active diverticulitis. There is some free fluid in the pelvis. There is a Watts catheter in the bladder which is contracted. IMPRESSION: Small bowel obstruction. Diverticulosis coli. Pneumonia. Electronically signed by Alexis Manriquez 01/04/2017 4:17 PM
--- NOTE | 2017-01-04 18:37 | PROGRESS NOTE ---
DATE: 01/04/2017 SUBJECTIVE: The patient is now level 3 documentation. For the last 24 hours, she has not passing flatness. No BM of Fleet enema. Belly was distended. This morning, patient has nausea, vomiting with bilious vomiting. Obviously abdomen is distended. REVIEW OF SYSTEMS: HEENT: No headache. No vision problems. Cardiopulmonary: No chest pain, shortness of breath. GI: Abdominal distention. Obstipation, nausea and vomiting with bilious. Extremities: No swelling of feet. PAST MEDICAL HISTORY, PAST SURGICAL HISTORY, MEDICINES: Were reviewed. OBJECTIVE: Vital Signs: Afebrile. Vitals are stable. Blood pressure is 96/62. On room air, 91%. HEENT: Within normal limits. Neck: Supple. Chest: Bilateral air entry. Heart: Sounds are regular. Abdomen: Belly is soft, distended. Bowel sounds are decreased. No peripheral edema, cyanosis. No obvious neurological deficits. INVESTIGATIONS: Flat/upright of the abdomen with chest. Distended small bowel. ASSESSMENT AND PLAN: 1. Abdominal pain, obstipation. Rule out bowel obstruction. Plan is nasogastric tube with low wall suction. Watts catheter. Follow up on CT scan of the abdomen and pelvis. 2. Chronic obstructive pulmonary disease. On IV Levaquin. 3. Urinary tract infection with candiduria. On Diflucan. 4. Atrial fibrillation with congestive heart failure, improved. Based on the CT, further recommendations will be followed and surgical consult with [facility]. We will continue the conservative management. LEVEL OF DOCUMENTATION: Thirty-five minutes. cc: Johnny Moe MD
[2017-01-04] MEDS ORDERED: CLINIMIX E 4.25%-5% SOLUTION 1,000 ML IV SCH (18:42)
[2017-01-04] MEDS: BREO ELLIPTA 100/25 MCG INH INH SCH (19:41)
[2017-01-04] MEDS: LEVAQUIN 500 MG/D5W 500 MG/100 ML IVPB IV SCH (21:54)
[2017-01-05] MEDS: NEURONTIN PO SCH (00:54)
[2017-01-05] MEDS: PRAVACHOL PO SCH (00:55)
[2017-01-05] MEDS: DUONEB (A & A) INH SCH ×2 (04:05→07:38)
[2017-01-05] MEDS: ZOFRAN IV PRN (05:46)
[2017-01-05] MEDS: DILAUDID IM PRN (05:46)
[2017-01-05 07:21] LABS: HEMATOCRIT 39.7 % (37.0-47.0); HEMOGLOBIN 12.8 g/dL (12.0-16.0); MCH 30.1 PG (27-31); MCHC 32.2 g/dL (33-37); MCV 93.4 FL (81-99); MPV 11.4 FL (7.4-10.4); RBC 4.25 XMIL (4.2-5.4)
[2017-01-05 07:45] LABS: CALCIUM 7.4 mg/dL (8.8-10.2)
[2017-01-05 08:01] LABS: POTASSIUM 5.8 mmol/L (3.5-5.1)
[2017-01-05] MEDS: NICODERM PATCH TD SCH (08:55)
[2017-01-05] MEDS: NS 1,000 ML IV SCH ×3 (08:58→20:31)
--- NOTE | 2017-01-05 09:52 | Diag Imaging Result Doc PS360 ---
EXAM: CHEST-2 VIEWS HISTORY: hypoxia TECHNIQUE: AP and lateral chest COMMENT: There is increased atelectasis over the right hemidiaphragm compared to 01/02/2017. Otherwise has been no significant change. IMPRESSION: Worsened right lower lobe atelectasis. Electronically signed by Alexis Manriquez 01/05/2017 9:50 AM
--- NOTE | 2017-01-05 09:57 | Diag Imaging Result Doc PS360 ---
EXAM: ABDOMEN FLAT/UPRIGHT HISTORY: pain TECHNIQUE: Two views COMPARISON: 01/04/2017 FINDINGS: The nasogastric tube has been advanced within the stomach. There are multiple surgical clips in the upper abdomen. No free air beneath the diaphragm. Mild to moderate scoliosis. Dilated small bowel loops in the mid and lower left abdomen and pelvis remain. No definite progression. IMPRESSION: No definite change in the small bowel obstruction. Electronically signed by Shoaib Segura 01/05/2017 9:54 AM
--- NOTE | 2017-01-05 11:55 | CONSULTATION ---
DATE OF CONSULTATION: 01/05/2017 REASON FOR CONSULTATION: I have been asked to see her regarding possible small bowel obstruction. HISTORY: This is a 71-year-old lady who was admitted on 12/29/2016 with probable pneumonia as manifested by chest x-ray. She has a known history of congestive heart failure and felt also that it was decompensated upon her admission. She has a history of atrial fibrillation and is on Cordarone and Eliquis at home for this. She did not present with any abdominal complaints. She does have a history of constipation however. OTHER MEDICAL PROBLEMS: Include COPD, metabolic syndrome, gastroesophageal reflux disease, hypertension, nicotine dependency, history of a right carotid endarterectomy, vein stripping in both legs, cholecystectomy, appendectomy, gastric bypass surgeon, a tubal ligation. Her carotid endarterectomy as done by Dr. Carlos rubio. MEDICATIONS: Listed. ALLERGY: Macrobid. SOCIAL HISTORY: She is . She does smoke regularly. PHYSICAL EXAMINATION: Vital Signs: She is currently somewhat somnolent and poorly responsive. She is afebrile. Heart rate is 63, respiratory rate 26, blood pressure is 94/ 58. She has an NG tube in place with gastric contents noted in the aspirate. She has bilateral breath sounds. Heart: Irregular rate and rhythm. Abdomen: Soft. She is mildly tender to palpation. No hernia are palpated. Multiple abdominal scars are noted and she has some peripheral edema. DIAGNOSTICS/LABS: White count is 9300, hemoglobin 12.8 hematocrit 39.7. Sodium is 127, potassium 5.8 chloride 80 BUN is up to [address] scan shows some dilated loops of small bowel, loop in the pelvis with some decompressed ileum post after this loop. There is stool within the loop and throughout the colon. ASSESSMENT: This lady was admitted with lung complaints and heart complaints. In the hospital she has developed some abdominal symptoms which may be related to an ileus versus small bowel obstruction. Certainly with pneumonia and heart failure, she could develop an ileus and have this picture. Next is intravascular volume depletion. With the large amount of fluid in her GI tract. She apparently has become intravascular volume depleted and is manifested by an elevated hemoglobin and an elevated BUN and creatinine. Her white count remains normal. I do not think there is any evidence of embolization to her SMA based on the CT scan. My recommendation would be continued intravascular volume repletion to normalize her kidney function. Will continue with NG suction. If she does not respond with improvement in her bowel function then she may require a laparotomy. Dr. rivers finishing this consultation on Lynette Gutierrez. [facility] will cover in my absence. cc: MD Johnny Smiley MD MTDD
[2017-01-05] MEDS: DILAUDID IV PRN ×2 (12:36→17:27)
[2017-01-05] MEDS ORDERED: NS 500 ML IV ONE ×2 (13:33→17:49)
[2017-01-05 19:29] VITALS: BP 96/44
[2017-01-05] MEDS ORDERED: LEVOPHED 8 MG in D5 1/2 NS 250 ML IV SCH (20:15)
[2017-01-05] MEDS ORDERED: PROTONIX IV SCH (20:30)
[2017-01-05] MEDS ORDERED: SODIUM CHLORIDE 0.9% INJ SCH (20:30)
--- NOTE | 2017-01-05 20:38 | PROGRESS NOTE ---
DATE: 01/05/2017 SUBJECT: The patient was examined over the last 12 hours on the floor. She developed bloody drainage from the nose. She was more lethargic, more pain in the belly. There was no history of flatus. Belly is less distended than yesterday. Watts was placed. Diffusely tender, but no signs of peritonitis. She is obtunded. REVIEW OF SYSTEMS: Obtunded. PAST MEDICAL HISTORY/PAST SURGICAL HISTORY/MEDICINES: Reviewed. OBJECTIVE: General: She is afebrile, hypotensive, tachycardic, tachypneic. Atrial fibrillation. HEENT: Atraumatic, normocephalic. Pupils equal, reactive to light. Neck: Supple. Chest: Bilateral air entry. Cardiac: Irregular heart sounds. Abdomen: Belly is soft, less distended, diffusely tender. No signs of peritonitis. : Watts was placed. Extremities: No peripheral edema, cyanosis. Neurologic: No obvious neurological deficits. INVESTIGATIONS: CBC: White cell count 9.3, hematocrit 39, platelets 383,000. SMA7: Sodium 127, potassium 5.8, chloride 80, BUN 77, creatinine 3, glucose 165, calcium 7.4. Urine cultures are yeast. Blood cultures were negative. Chest x-ray: Atelectasis in the right base and small-bowel obstruction. ASSESSMENT AND PLAN: 1. Small bowel obstruction. Continue on conservative management with Watts and NG tube with low wall suction. 2. Chronic atrial fibrillation, stable. 3. Acute renal failure due to intravascular volume depletion. IV fluids with crystalloids 80 mL an hour. 2 boluses were given. Still hypotensive, not able to make any urine. Started on vasopressors. 4. Pain, on Dilaudid. 5. Impending respiratory failure. We will start on BiPAP machine with blood gas. 6. Continue IV antibiotics with Levaquin. Dulcolax. 7. Chronic nicotine abuse on nicotine patch. 8. Bleeding from the nostril probably from aspirin, Plavix and Eliquis. We will stop all her home medicines. 9. Discussed with the family at the bedside. Transferred to the ICU. Please see the transfer orders. 10. I did discuss with Dr. Sutton yesterday and he is going to follow up. She has multiple medical problems in the past which includes cerebrovascular accident, atrial fibrillation, congestive heart failure, peripheral vascular disease. 11. Antithrombotic stockings for DVT prophylaxis. 12. Gastrointestinal prophylaxis with Protonix. 13. Living Will is Full Code. This is a critical care consult, took more than 60 minutes. cc: Johnny Moe MD
[2017-01-05 20:40] LABS: ALLEN TEST YES; BE -13.1 mmoll (-3.0-3.0); BLOOD TYPE ARTERIAL; DRAW SITE R RADIAL; METHB 0.7 % (0.0-1.5); O2(CT) 16.4 mL/dL (15.0-23.0); PCO2(98.6) 46 mmHg (35-45); PO2(98.6) 68 mmHg (60-100); SAMPLE BLOOD; THB 13.4 g/dL (11.5-17.4)
[2017-01-05 20:41] LABS: MODALITY NRB; pH(98.6) 7.14 (7.35-7.45)
[2017-01-05] MEDS ORDERED: CALCIUM GLUCONATE 2 GM in NS 100 ML IV ONE (20:46)
[2017-01-05] MEDS ORDERED: HUMULIN R IV ONE (20:46)
[2017-01-05] MEDS ORDERED: D50W SYRINGE IV ONE (20:46)
[2017-01-05] MEDS ORDERED: KAYEXALATE PR ONE (20:47)
[2017-01-05] MEDS ORDERED: DOPAMINE 400 MG/D5W 400 MG/500 ML IV.SOLN IV SCH (20:50)
[2017-01-05] MEDS ORDERED: D50W SYRINGE ONE (20:52)
[2017-01-05] MEDS ORDERED: LEVAQUIN 250 MG/D5W 250 MG/50 ML IVPB IV SCH (21:00)
[2017-01-05] MEDS ORDERED: DULCOLAX PR SCH (21:00)
[2017-01-05] MEDS ORDERED: EPINEPHRINE 4 MG in NS 250 ML IV SCH ×2 (21:15→22:00)
[2017-01-05] MEDS ORDERED: MAGNESIUM SULFATE 1 GM/D5W 1 GM/100 ML IVPB IV ONE (21:18)
[2017-01-05 21:38] LABS: EOS# 0.12 X1000 (0.0-0.7); EOS% 0.9 % (0.0-10.0); HEMATOCRIT 34.7 % (37.0-47.0); HEMOGLOBIN 10.8 g/dL (12.0-16.0); IMM GRAN# 1.43 X1000 (0.0-0.04); IMM GRAN% 10.5 % (0.0-0.5); LYMPH# 3.15 X1000 (1.2-3.4); LYMPH% 23.2 % (20.5-51.1); MANUAL DIFF NEEDED? YES; MCH 29.8 PG (27-31); MCHC 31.1 g/dL (33-37); MCV 95.6 FL (81-99); MONO# 0.34 X1000 (0.11-0.59); MONO% 2.5 % (1.7-9.3); MPV 11.9 FL (7.4-10.4); NEUT% 59.9 % (42.2-75.2); PLT 314 X1000 (130-400); RBC 3.63 XMIL (4.2-5.4)
[2017-01-05 21:58] LABS: BANDS 46 % (0-1); LYMPHS 34 % (21-51); MONO 4 % (1-9); NRBC 2 % (0-0)
[2017-01-05 22:22] LABS: ALBUMIN 1.8 g/dL (3.5-5.0); CALCIUM 12.8 mg/dL (8.8-10.2); POTASSIUM 7.4 mmol/L (3.5-5.1); TOTAL BILIRUBIN 0.28 mg/dL (0.20-1.00); TOTAL PROTEIN 3.4 g/dL (6.3-8.3)
--- NOTE | 2017-01-08 08:05 | DISCHARGE SUMMARY ---
ADMISSION DATE: 12/29/2016 DISCHARGE DATE: 01/05/2017 FINAL DIAGNOSIS: Acute cardiopulmonary arrest due to small bowel obstruction associated with ischemic bowel an multiorgan failure. SECONDARY DIAGNOSES: 1. Chronic atrial fibrillation; failed cardioversion. 2. History of right lacunar infarct at internal capsule. 3. Chronic obstructive pulmonary disease. 4. Diastolic heart failure. 5. Acid reflux disease. 6. Hypertension. 7. Nicotine dependency. 8. B12 deficiency. 9. Left superficial femoral artery stenosis. 10. Left carotid stenosis. OTHER PROBLEMS: 1. History of gastric bypass surgery. 2. Appendectomy. 3. Hysterectomy. 4. Stripping of the varicose veins. 5. Right carotid endarterectomy. CONSULTS: Dr. Vik Sutton. PROCEDURES: 1. Ventilator support. 2. ACLS, BLS protocol for 70 minutes. BRIEF HISTORY: Please see the H P that was done on in brief, she is a 71-year-old white female with the above problems, was admitted to the hospital on 2016 for shortness of breath, cough, and wheezing. Chest x-ray showed bilateral infiltrates. Dr. Archibald was seen in the emergency room. She was admitted on the floor in telemetry. At the time of admission the patient was found to have diastolic heart failure with decompensation. She was given oxygen, IV Lasix, bronchodilators. She was also given IV steroids and Levaquin for underlying COPD. The patient had diuresis of 6 L and her pulmonary symptoms were much improved. I was able to wean off FiO2 to nasal cannula. The hospital course was prolonged. 1. Leg cramps due to over diuresis. Potassium was 3.4, for which she was given magnesium and potassium. 2. Patient not able to tolerate potassium through the IV due to burning and then she started having constipation. She was given Fleet enema laxatives without any improvement and her symptoms were worsening with abdominal distention, nausea with bilious vomitus. Subsequently patient was decompressed with an NG tube with low wall suction Watts catheter. Flat/upright of the abdomen and CT scan of the abdomen and pelvis consistent with small bowel obstruction from the previous surgeries. She was given conservative management and suddenly her situation deteriorated with bleeding in the NG tube, hypotension, acute renal failure, and hyperkalemia. I transferred the patient on 01/05/2017 leaflet distributor to the critical care ICU. Dr. Sutton was consulted. He felt she was too sick to be operated and let the electrolytes and hemodynamics to be stable. If she fails to improve, he will take to the operating room. He did discuss with the family members. In the meantime, I was in the ICU from 7:30 PM to 10:15 PM Patient's situation was worsening. She became hypotensive. Unable to get any urine. She was given a fluid bolus 1 L, started on vasopressors. Patient was given Dilaudid for pain. Belly exam was very tender without any guarding. NG tube showing blood was coming out. Repeat labs in the ICU showing potassium was going high. ABG showed she was severely acidotic with lactate level 10. I was coordinating the care with the nurses. Started on BiPAP machine. The patient was given Kayexalate, enema, calcium gluconate. While she was on BiPAP the patient went into asystole when I was standing at the bedside. Chyna longo was called in. She was resuscitated with IV dopamine, IV Levophed, several doses of epinephrine , and excellent CPR compressions. Twenty minutes later she was back into pulse and rhythm. I went back to the upstairs to talk to the family members that she was very sick and about to loose her. Family was called in. She maintained rhythm about 10 minutes and she was already intubated. We lost the pulse again and resuscitated another 20 minutes and brought her back. The family was there and she was able to move the arms and able to nod the head. She stayed with a pulse for about 5 minutes and then went back into asystole. We resuscitated a third time for another 15 minutes and she permanently became asystole. The chyna longo was called off at [id number]. Family was contacted and they were all at the bedside. The cause of the was due to cardiopulmonary arrest due to small bowel obstruction suspicious for ischemic bowel with multiorgan failure with comorbid conditions as above. Notified Dr. Vik Sutton. cc: Johnny Moe MD [facility]
== END 2017-01-05 21:51 | disposition expired ==
LOC: EDBD → ED 15:38 → EDUNIT# 15:39 → 3N 17:14 → ICU 01-05 10:07
PROVIDERS: ADMIT Internal Medicine; ATTEND Internal Medicine